=== PATIENT | female | born 1985 | race American Indian/Alaskan Native ===

== ENCOUNTER 2016-04-15 21:05 | Emergency (ER) | payer MEDICAID ==
[2016-04-15 21:53] LABS: Basophils % (Auto) 0.3 % (0.0-1.8); Eosinophils % (Auto) 0.2 % (0.0-4.3); Hematocrit 36.3 % (30.3-42.9); Hemoglobin 11.5 gm/dl (10.1-14.3); Mean Corpuscular HGB Conc 32 % (30-34); Mean Corpuscular Hemoglobin 29 pg (28-32); Mean Corpuscular Volume 92 fl (79-97); Platelet Count 162 K/mm3 (140-440); Red Blood Count 3.94 M/mm3 (3.65-5.03); Red Cell Distribution Width 14.6 % (13.2-15.2)
[2016-04-15] MEDS ORDERED: MORPHINE IV ONE (22:24)
[2016-04-15] MEDS ORDERED: NACL 0.9% 1000 ML 1,000 ML IV ONE (22:24)
[2016-04-15] MEDS ORDERED: ZOFRAN IV ONE (22:26)
--- NOTE | 2016-04-15 22:27 | Emergency Department Report ---
ED General Adult HPI - General Chief complaint: Vaginal Bleeding Stated complaint: STOMACH PAIN Time Seen by Provider: 04/15/16 21:47 Source: patient, family Mode of arrival: Wheelchair Limitations: No Limitations - History of Present Illness Initial comments: This is a 30-year-old female, previously unknown to me. Her primary care doctor is Dr. Cabezas. Last menstrual period is March 04. History of anemia. No history of abdominal surgeries. Patient presents to the ER with lower abdominal pain, vaginal bleeding. Symptoms started today at 6:00 PM. The pain is sharp. It is in the bilateral lower quadrants. It does not radiate. It increases with palpation and decreases with rest. Positive nausea, no vomiting. No irritative or obstructive urinary symptoms. Patient is sexually active with one partner, , positive dyspareunia. -: Gradual Location: abdomen Consistency: intermittent Improves with: rest Worsens with: movement Associated Symptoms: loss of appetite, nausea/vomiting - Related Data Home Medications Medication Instructions Recorded Confirmed Last Taken Iron,Carbonyl/Ascorbic Acid 1 tab PO DAILY 04/15/16 04/15/16 04/15/16 [Vitron-C Tablet] Previous Rx's Medication Instructions Recorded Last Taken Type Ketorolac [Toradol] 10 mg PO Q6H PRN #20 tablet 04/16/16 Unknown Rx Ondansetron [Zofran Odt] 4 mg PO QID PRN #20 tab.rapdis 04/16/16 Unknown Rx Allergies Allergy/AdvReac Type Severity Reaction Status Date / Time No Known Allergies Allergy Verified 04/15/16 21:11 ED Review of Systems ROS: Stated complaint: STOMACH PAIN Other details as noted in HPI Constitutional: denies: fever, malaise Eyes: denies: vision change ENT: denies: epistaxis Respiratory: denies: cough Cardiovascular: denies: chest pain Gastrointestinal: abdominal pain Genitourinary: as per HPI, abnormal menses Musculoskeletal: as per HPI Skin: denies: rash, lesions Neurological: denies: weakness Psychiatric: anxiety ED Past Medical Hx - Past Medical History Additional medical history: ANEMIC - Social History Smoking Status: Never Smoker Substance Use Type: None - Medications Home Medications: Home Medications Medication Instructions Recorded Confirmed Last Taken Type Iron,Carbonyl/Ascorbic Acid 1 tab PO DAILY 04/15/16 04/15/16 04/15/16 History [Vitron-C Tablet] Ketorolac [Toradol] 10 mg PO Q6H PRN #20 tablet 04/16/16 Unknown Rx Ondansetron [Zofran Odt] 4 mg PO QID PRN #20 tab.rapdis 04/16/16 Unknown Rx ED Physical Exam - General Limitations: No Limitations General appearance: alert, in no apparent distress - Head Head exam: Present: atraumatic, normocephalic - Eye Eye exam: Present: normal appearance, EOMI. Absent: nystagmus - ENT ENT exam: Present: normal exam, normal orophraynx, mucous membranes moist - Neck Neck exam: Present: normal inspection, full ROM. Absent: tenderness, meningismus - Respiratory Respiratory exam: Present: normal lung sounds bilaterally. Absent: respiratory distress, wheezes, rales, rhonchi, stridor, chest wall tenderness - Cardiovascular Cardiovascular Exam: Present: regular rate, normal rhythm, normal heart sounds. Absent: bradycardia, tachycardia, irregular rhythm, systolic murmur, diastolic murmur, rubs, gallop - GI/Abdominal GI/Abdominal exam: Present: soft, tenderness, normal bowel sounds, other ( suprapubic, right lower quadrant, left lower quadrant tenderness.). Absent: distended, guarding, rebound, rigid, pulsatile mass - Extremities Exam Extremities exam: Present: normal inspection, full ROM, normal capillary refill. Absent: tenderness, pedal edema, joint swelling, calf tenderness - Back Exam Back exam: Present: normal inspection, full ROM. Absent: tenderness, CVA tenderness (R), CVA tenderness (L), muscle spasm, paraspinal tenderness, vertebral tenderness - Neurological Exam Neurological exam: Present: alert, oriented X3, normal gait, other (Extraocular movements intact. Tongue midline. No facial droop. Facial sensation intact to light touch in the V1, V2, V3 distribution bilaterally. 5 and 5 strength in 4 extremities.. Sensation is intact to light touch in 4 extremities.). Absent : motor sensory deficit - Psychiatric Psychiatric exam: Present: normal affect, normal mood - Skin Skin exam: Present: warm, dry, intact, normal color. Absent: rash ED Course Vital Signs 04/15/16 04/15/16 04/15/16 21:11 21:46 21:57 Temperature 98.4 F Pulse Rate 66 69 Respiratory 16 16 Rate Blood Pressure 90/47 O2 Sat by Pulse 100 99 Oximetry 04/15/16 04/15/16 04/15/16 22:00 22:03 23:00 Temperature Pulse Rate 71 72 71 Respiratory 14 18 23 Rate Blood Pressure 118/71 118/71 109/56 O2 Sat by Pulse 99 98 Oximetry 04/16/16 04/16/16 00:00 02:44 Temperature Pulse Rate 75 Respiratory 16 18 Rate Blood Pressure 106/67 O2 Sat by Pulse 100 Oximetry - Reevaluation(s) Reevaluation #1: 04/16/16 01:45 differential diagnosis: , urinary tract infection, appendicitis, ovarian cyst, pelvic inflammatory disease, dysfunctional uterine bleeding Assessment and plan: 30-year-old female with resolved hypotension, lower abdominal pain, reported vaginal bleeding. She is not . She is afebrile, nonspecific leukocytosis, with resultant hypotension. Patient was able to tolerate oral contrast, and has had a CT scan with IV and oral contrast. Blood pressure is improved. Urinalysis is pending. Pelvic ultrasound is pending. We'll perform gynecologic examination. Reassess once radiology has resulted, and pelvic examination has been completed. Reevaluation #2: 04/16/16 03:59 Gynecologic examination: Escorted by ER safe technician Marilyn leonardo: There is vaginal bleeding. Mild bilateral adnexal tenderness. Mild uterine tenderness. CT scan of the abdomen and pelvis demonstrates no appendicitis. The ultrasound and CT scan suggests hemorrhagic/cystic changes of the ovaries. The patient feels much improved, her abdomen is soft and benign, and she is tolerating liquid feeds. She will be discharged with pain medication, nausea medication, instructions to follow up with [facility]. Hypotension improved. ED Medical Decision Making - Lab Data Result diagrams: 04/15/16 21:38 04/15/16 22:57 Vital Signs 04/15/16 04/15/16 04/15/16 21:11 21:46 21:57 Temperature 98.4 F Pulse Rate 66 69 Respiratory 16 16 Rate Blood Pressure 90/47 O2 Sat by Pulse 100 99 Oximetry 04/15/16 04/15/16 04/15/16 22:00 22:03 23:00 Temperature Pulse Rate 71 72 71 Respiratory 14 18 23 Rate Blood Pressure 118/71 118/71 109/56 O2 Sat by Pulse 99 98 Oximetry 04/16/16 00:00 Temperature Pulse Rate 75 Respiratory 16 Rate Blood Pressure 106/67 O2 Sat by Pulse 100 Oximetry Lab Results 04/15/16 04/15/16 04/15/16 Range/Units 21:38 21:38 21:38 WBC 14.0 H (4.5-11.0) K/mm3 RBC 3.94 (3.65-5.03) M/mm3 Hgb 11.5 (10.1-14.3) gm/dl Hct 36.3 (30.3-42.9) % MCV 92 (79-97) fl MCH 29 (28-32) pg MCHC 32 (30-34) % RDW 14.6 (13.2-15.2) % Plt Count 162 (140-440) K/mm3 Lymph % (Auto) 6.3 L (13.4-35.0) % Levy % (Auto) 5.9 (0.0-7.3) % Eos % (Auto) 0.2 (0.0-4.3) % Baso % (Auto) 0.3 (0.0-1.8) % Lymph # 0.9 L (1.2-5.4) K/mm3 Levy # 0.8 (0.0-0.8) K/mm3 Eos # 0.0 (0.0-0.4) K/mm3 Baso # 0.0 (0.0-0.1) K/mm3 Seg Neutrophils % 87.3 H (40.0-70.0) % Seg Neutrophils # 12.2 H (1.8-7.7) K/mm3 Sodium (137-145) mmol/L Potassium (3.6-5.0) mmol/L Chloride (98-107) mmol/L Carbon Dioxide (22-30) mmol/L Anion Gap mmol/L BUN (7-17) mg/dL Creatinine (0.7-1.2) mg/dL Estimated GFR ml/min BUN/Creatinine Ratio % Glucose (65-100) mg/dL Calcium (8.4-10.2) mg/dL HCG, Quant < 2 (0-4) mIU/mL Blood Type A POSITIVE Antibody Screen Negative 04/15/16 Range/Units 22:57 WBC (4.5-11.0) K/mm3 RBC (3.65-5.03) M/mm3 Hgb (10.1-14.3) gm/dl Hct (30.3-42.9) % MCV (79-97) fl MCH (28-32) pg MCHC (30-34) % RDW (13.2-15.2) % Plt Count (140-440) K/mm3 Lymph % (Auto) (13.4-35.0) % Levy % (Auto) (0.0-7.3) % Eos % (Auto) (0.0-4.3) % Baso % (Auto) (0.0-1.8) % Lymph # (1.2-5.4) K/mm3 Levy # (0.0-0.8) K/mm3 Eos # (0.0-0.4) K/mm3 Baso # (0.0-0.1) K/mm3 Seg Neutrophils % (40.0-70.0) % Seg Neutrophils # (1.8-7.7) K/mm3 Sodium 139 (137-145) mmol/L Potassium 3.8 (3.6-5.0) mmol/L Chloride 100.6 (98-107) mmol/L Carbon Dioxide 23 (22-30) mmol/L Anion Gap 19 mmol/L BUN 9 (7-17) mg/dL Creatinine 0.7 (0.7-1.2) mg/dL Estimated GFR > 60 ml/min BUN/Creatinine Ratio 12.85 % Glucose 151 H (65-100) mg/dL Calcium 9.3 (8.4-10.2) mg/dL HCG, Quant (0-4) mIU/mL Blood Type Antibody Screen - Radiology Data Radiology results: report reviewed, image reviewed Pelvic/transvaginal ultrasound demonstrates no evidence of ovarian torsion. Posterior fibroid is suggested. Mildly complex or hemorrhagic cystic changes noted in the bilateral ovaries, left greater than right. CT scan of the abdomen pelvis negative for appendicitis. Constipation is suggested in the left colon. cystic change suggested in the bilateral ovaries. Critical care attestation.: If time is entered above; I have spent that time in minutes in the direct care of this critically ill patient, excluding procedure time. ED Disposition Clinical Impression: Vaginal bleeding Disposition: DISCHARGED TO HOME OR SELFCARE Is pt being admited?: No Does the pt Need Aspirin: No Condition: Stable Instructions: Ovarian Cyst (ED), Dysfunctional Uterine Bleeding (ED) Additional Instructions: Take the pain medication and nausea medication as directed. Follow up with an [employer] doctor within the next 2 weeks. Cultures were sent today, results will be available next 3-5 days. Laboratory studies and radiology studies suggested ovarian cysts, and possible constipation. Take the pain medication, nausea medication as directed. Drink 6 cups of water per day. Eat fiber and vegetables. Dr. Marcelino is a local home management supervisor. "My [employer] [facility]" is a local home management supervisor. Return to the ER right away with new pain, worsened pain, migration of pain, chills, intractable nausea or vomiting, inability to tolerate liquid feeds. Prescriptions: Ketorolac [Toradol] 10 mg PO Q6H PRN #20 tablet PRN Reason: Pain Ondansetron [Zofran Odt] 4 mg PO QID PRN #20 tab.rapdis PRN Reason: Nausea Referrals: PRIMARY CARE, [Primary Care Provider] - 3-5 Days ALBER MARCELINO MD [Staff Physician] - 3-5 Days [facility] [Provider Group] - 3-5 Days
[2016-04-15 23:44] LABS: BUN/Creatinine Ratio 12.85; Blood Urea Nitrogen 9 mg/dL (7-17); Calcium 9.3 mg/dL (8.4-10.2); Carbon Dioxide 23 mmol/L (22-30); Chloride 100.6 mmol/L (98-107); Glucose 151 mg/dL (65-100); Potassium 3.8 mmol/L (3.6-5.0); Sodium 139 mmol/L (137-145)
[2016-04-16 00:07] LABS: Anion Gap 19 mmol/L
[2016-04-16] MEDS ORDERED: NACL ONE (00:25)
[2016-04-16 01:38] VITALS: BP 106/67
[2016-04-16] MEDS ORDERED: TORADOL IV ONE (01:43)
--- NOTE | 2016-04-16 02:23 | Cat Scan Report ---
FINAL REPORT EXAM: CT ABDOMEN PELVIS W CON HISTORY: LOWER ABD PAIMN TECHNIQUE: Spiral CT scanning of the abdomen and pelvis after the uneventful administration of IV contrast. Multiplanar reformations. 100 mL Omnipaque IV. PRIORS: None. FINDINGS: Abdomen: Visualized lung bases grossly unremarkable. No radiopaque gallstones. Liver without significant abnormality. Spleen without significant abnormality. Pancreas without significant abnormality. Kidneys without significant abnormality. Adrenal glands without significant abnormality. Pelvis: Bowel grossly unremarkable, with moderate amount of retained stool in the left colon and stool impaction in the rectosigmoid colon. Appendix within normal limits. No significant free peritoneal fluid or apparent adenopathy. Abdominal aorta non-aneurysmal. Small amount of probable fluid in the uterus, with lobular margins along the dorsal corpus. Cystic foci in the bilateral adnexa, largest on the left measuring approximately 3 cm. IMPRESSION: 1. Findings suggestive of constipation in the left colon. 2. Small amount of probable fluid in the uterus and possible leiomyomatous change in the uterine corpus. Gravid uterus not completely excluded, and correlation with appropriate laboratory values along with followup may be warranted. 3. Findings which may represent functional cystic change in the bilateral ovaries. Correlation with pelvic ultrasound may help in further evaluation, as clinically indicated.
[2016-04-16 02:43] LABS: Bilirubin,Urine NEG (Negative); Blood,Urine MOD (Negative); Ketones,Urine NEG (Negative); Leukocyte Esterase,Urine NEG (Negative); Mucus,Urine FEW /HPF; Nitrite,Urine NEG (Negative); Protein,Urine <15 mg/dL mg/dL (Negative)
--- NOTE | 2016-04-16 03:30 | Ultrasound Report ---
FINAL REPORT EXAM: US PELVIS DUPLEX DOPPLER COMP HISTORY: pelvic pain TECHNIQUE: Transabdominal and transvaginal sonography of the pelvis. Duplex Doppler performed. PRIORS: CT abdomen and pelvis of same date. FINDINGS: The uterus measures 7.2 x 3.8 x 4.5 cm and contains a rounded and heterogeneous hypoechoic focus in the posterior uterine corpus measuring approximately 2 x 2.1 cm probably representing fibroid. The endometrial stripe is within normal limits and measures 3 mm in AP dimension. The right ovary measures 3.2 x 1.3 x 2.1 cm and contains mildly complex, cystic focus measuring approximately 0.8 x 1.6 cm. The left ovary measures 3.7 x 2.6 x 2.8 cm and contains a lobular and hypoechoic or cystic focus measuring 2.8 x 2.5 cm, with low level internal echogenic debris. Duplex Doppler shows appropriate blood flow present in the ovaries bilaterally. No adnexal masses or significant free peritoneal fluid. IMPRESSION: 1. Probable fibroid in posterior uterine corpus. 2. Findings which may represent mildly complex or hemorrhagic, cystic change in the bilateral ovaries, left greater than right. Clinical correlation and followup pelvic ultrasound in 6-10 weeks advised to document resolution. 3. Otherwise, unremarkable.
== END 2016-04-16 04:14 | disposition home or self-care (01) ==
LOC: ED 21:05
DX: N93.9 Abnormal uterine and vaginal bleeding, unspecified (principal)
CPT/HCPCS: 36415; 74177; 76830; 80048; 81001; 84702; 85025; 86850; 86900; 86901; 87210; 87591; 93975; 96361; 96374; 96375; 99285; J1885; J2270; J2405; J7030; Q9967